=== PATIENT | female | born 1990 | race Caucasian/White ===

== ENCOUNTER 2020-05-18 23:48 | Emergency (ER) | payer OTHER ==
[~2020-05-18] VITALS: Ht 162.6 cm; Wt 55.0 kg
--- NOTE | 2020-05-19 | NUR ---
Pt tx from [facility] with concerns of ectopic . Pt states taking morning after pill about a month ago, having increased cramping and bleeding the last few week. Earlier today pain became wose and pt was pale. Pt states pain is now minimal with no active bleeding. Pt now P/W/D. Pt on monitor. Family at bedside. Will monitor.
--- NOTE | 2020-05-19 00:25 | NUR ---
Pt calm in room. States having minimal pain. Denies any needs. Will continue to monitor. VSS.
[2020-05-19 01:49] VITALS: BP 104/44
--- NOTE | 2020-05-19 01:51 | NUR ---
Patient/Caregiver given discharge instructions and they have confirmed that they understand the instructions. Patient ambulatory with steady gait. Pt instructed to f/u with OBGYN tomorrow.
== END 2020-05-19 01:52 | disposition home or self-care (01) ==
LOC: ED 05-19 00:31
DX: O20.0 Threatened abortion (principal); R10.84 Generalized abdominal pain; Z3A.01 Less than 8 weeks gestation of pregnancy
CPT/HCPCS: 99283

== ENCOUNTER 2020-05-20 16:20 | Emergency (ER) | payer OTHER ==
[~2020-05-20] VITALS: Ht 162.6 cm; Wt 54.9 kg
[2020-05-20] MEDS ORDERED: SODIUM CHLORIDE FLUSH 10ML SYR IVF ONE (16:30)
--- NOTE | 2020-05-20 16:50 | NUR ---
PT TO ROOM 14 W/ C/O L SIDE PAIN STARTED 1 MONTH AGO. SEVERE PAIN STARTED SATURDAY NOC. PT STATES SHE TOOK PLAN B 6 SIXS AGO AND HAS HAD RANDOM SPOTTING/BLEEDING. PT WENT TO SEE HER OBGYN DR. OLIVEROS AND WAS FOUND TO HAVE ECTOPIC AND FALLOPIAN TUBE IS FILLING W/ BLOOD. TOLD TO COME TO ED FOR SURGERY. PT STATES SHE HAD HER QUANT DONE AND HAD IT RECHECKED AGAIN.
[2020-05-20 16:52] VITALS: BP 108/78
[2020-05-20 17:04] LABS: BASOPHILS % (AUTO) 1 % (0-1); EOSINOPHILS % (AUTO) 1 % (1-7); LYMPHOCYTES % (AUTO) 27 % (22-44); MEAN CORPUSCULAR HEMOGLOBIN 32.7 pg (27.0-34.8); MEAN CORPUSCULAR HGB CONC 34.2 g/dL (32.4-35.8); MEAN PLATELET VOLUME 9.1 fL (7.4-10.4); MONOCYTES % (AUTO) 6 % (2-9); NEUTROPHILS % (AUTO) 65 % (42-75); PLATELET COUNT 188 x10^3/uL (130-400); RED CELL DISTRIBUTION WIDTH 12.1 % (9.6-15.2)
[2020-05-20] MEDS ORDERED: BUPIVACAINE/PF 0.25% ONE (17:04)
[2020-05-20] MEDS ORDERED: EPINEPHRINE 1 MG/ML, 1ML ONE (17:04)
[2020-05-20 17:11] LABS: ANION GAP 4 mmol/L (5-15); CALCIUM 9.1 mg/dL (8.5-10.1); CHLORIDE 110 mmol/L (98-107); CREATININE 0.64 mg/dL (0.55-1.02)
[2020-05-20 17:12] LABS: ALBUMIN 4.5 g/dL (3.4-5.0)
--- NOTE | 2020-05-20 17:12 | NUR ---
REPORT GIVEN TO TOWEL HEMMER. ALL QUESTIONS ANSWERED.
[2020-05-20] MEDS ORDERED: FENTANYL PF 250 MCG/5ML ONE (17:20)
[2020-05-20] MEDS ORDERED: MIDAZOLAM 1 MG/ML, 2ML ONE (17:20)
[2020-05-20] MEDS ORDERED: PROPOFOL 50 ML ONE (17:20)
[2020-05-20] MEDS ORDERED: SODIUM CHLORIDE FLUSH 10ML SYR IVF PRN (17:30)
[2020-05-20] MEDS ORDERED: DIPHENHYDRAMINE 50 MG/ML, 1ML ONE (17:43)
[2020-05-20] MEDS ORDERED: KETOROLAC 30 MG/1 ML ONE (17:43)
[2020-05-20] MEDS ORDERED: PROMETHAZINE 25 MG/ML, 1ML IVPush PRN (18:30)
[2020-05-20] MEDS ORDERED: HYDROmorphone 1 MG/ML, 1ML INJ IVPush PRN (18:30)
[2020-05-20] MEDS ORDERED: LABETALOL 5MG/ML, 20ML IV PRN (18:30)
[2020-05-20] MEDS ORDERED: EPHEDRINE 50 MG/ML, 1ML IVPush PRN (18:30)
[2020-05-20] MEDS ORDERED: MEPERIDINE/PF 25MG/0.5ML IVPush PRN (18:30)
[2020-05-20] MEDS ORDERED: ONDANSETRON 2MG/ML, 2ML IVPush PRN (18:30)
[2020-05-20] MEDS ORDERED: DIAZEPAM 5 MG/ML, 2ML IVPush PRN (18:30)
[2020-05-20] MEDS ORDERED: EPHEDRINE 50 MG/ML, 1ML IM PRN (18:30)
[2020-05-20] MEDS ORDERED: DIPHENHYDRAMINE 50 MG/ML, 1ML IVPush PRN (18:30)
[2020-05-20] MEDS ORDERED: OXYcodone 5 MG/5 ML ORAL.SOL UDC PO PRN (18:30)
[2020-05-20] MEDS ORDERED: ACETAMINOPHEN 325 MG TABLET PO PRN (18:30)
[2020-05-20] MEDS ORDERED: FENTANYL PF 100 MCG/2ML IV PRN (18:30)
[2020-05-20] MEDS ORDERED: SUCCINYLCHOLINE 20 MG/ML, 10ML ONE (18:32)
[2020-05-20] MEDS ORDERED: PROPOFOL 10 MG/ML, 20ML ONE (18:32)
[2020-05-20] MEDS ORDERED: DEXAMETHASONE 4 MG/ML, 5ML ONE (18:32)
[2020-05-20] MEDS ORDERED: ROCURONIUM 10MG/ML,5ML ONE (18:32)
[2020-05-20] MEDS ORDERED: ONDANSETRON 2MG/ML, 2ML ONE (18:32)
[2020-05-20] MEDS ORDERED: MEPERIDINE/PF 25MG/ML,1ML ONE (19:21)
[2020-05-20] MEDS ORDERED: ACETAMINOPHEN 650 MG/20.3 ML UDC ONE (19:37)
== END 2020-05-20 20:55 | disposition home or self-care (01) ==
LOC: OR 17:00 → EDIP 17:17 → UNDOADMIN 17:17
DX: O00.101 Right tubal pregnancy without intrauterine pregnancy (principal); Z32.01 Encounter for pregnancy test, result positive; Z20.822 Contact with and (suspected) exposure to COVID-19
CPT/HCPCS: 36415; 59151; 80048; 82040; 84702; 85025; 86850; 86900; 87635; 88305; 96374; 99285; J0171; J0330; J1100; J2175; J2250; J2405; J2704; J3010; J1885; J1200